=== PATIENT | male | born 1935 | race Caucasian/White ===

== ENCOUNTER → 2017-03-24 | Outpatient (CLI) | payer MEDICARE, BC ==
[~2017-03-24] VITALS: Ht 170.2 cm; Wt 77.1 kg
[~2017-03-24] MED LIST: ADALAT10 MG ORAL; ASPIR 8181 MG ORAL; DIOVAN320 MG ORAL; GABAPENTIN100 MG ORAL; PLAVIX75 MG ORAL; SIMVASTATIN40 MG ORAL; VITAMIN D1000 UNI1 ORAL
[2017-03-24 09:31] VITALS: BP 131/72
--- NOTE | 2017-03-24 13:36 | GI Initial Consult Note ---
History of Present Illness General Date patient seen: March 24, 2017 Time patient seen: 11:00 Referring physician: RICHELLE Reason for Consultation: ABNORMALITY ON PANCREATIC DUCT Present Illness HPI 82 year old male patient referred by Dr. Yang to evaluate abnormality of pancreatic duct as shown on recent CT scans, full report in chart. Pt has recent CVA, currently on ASA and Plavix. He presents today with generalized abdominal pain and c/o of GERD. States that his appetite has been good. Unknown history of colonoscopy. Home Meds Reported Medications Gabapentin* (GABAPENTIN*) 100 Mg Capsule, 100 MG ORAL THREE TIMES A DAY, CAP 03/24/17 Cholecalciferol (Vitamin D3)* (VITAMIN D*) 1,000 Unit Tablet, 2000 UNITS ORAL DAILY, #30 TAB 0 Refills 03/24/17 Valsartan (DIOVAN) 320 Mg Tablet, 320 MG ORAL DAILY, TAB 03/24/17 Simvastatin (ZOCOR) 40 Mg Tablet, 40 MG ORAL BEDTIME, TAB 03/24/17 Nifedipine (Nifedipine*) Unknown Strength Capsule, ORAL EVERY 6 HOURS, CAP 03/24/17 Clopidogrel Bisulfate* (PLAVIX*) 75 Mg Tablet, 75 MG ORAL DAILY, TAB 03/24/17 Aspirin* (ASPIR 81*) 81 Mg Tablet., 81 MG ORAL DAILY, TAB 03/24/17 Med list reviewed/reconciled: Yes Allergies: Coded Allergies: KETOROLAC (Verified Allergy, Mild, 03/24/17) HOT FLUSHES Patient History History Provided By: Patient, Medical Record PMH Narrative CVA 10/2016 Nerve Pain 01/2017 HTN cholesterol prostate CA GERD diverticulitis PSHx proctectomy angioplasty > 40 years ago Pertinent Family History: none Social History: Denies: alcohol use, drug use, other, smoking Review of Systems All Other Systems: negative except mentioned in HPI Physical Exam Vital Signs Date Time Temp Pulse Resp B/P Pulse Ox O2 Delivery O2 Flow Rate FiO2 03/24/17 09:31 97.8 62 16 131/72 99 Sp02 EP Interpretation: reviewed General Appearance: well appearing, no apparent distress, alert Head: normocephalic EENT: normal ENT inspection Neck: supple Respiratory: normal breath sounds, no respiratory distress Cardiovascular: normal peripheral pulses, normal rate Gastrointestinal: normal inspection, non tender, soft Rectal: deferred Genitourinary: no CVA tenderness Musculoskeletal: back normal Neurologic: normal inspection, alert, oriented x3, responsive Psychiatric: normal inspection, judgement/insight normal, memory normal Skin: normal inspection, normal color, no rash, warm/dry Lymphatic: normal inspection, no adenopathy GI: Plan Problems: (1) Abnormality of pancreatic duct (2) Diverticulitis (3) GERD (gastroesophageal reflux disease) (4) CVA (cerebral vascular accident) (5) HTN (hypertension) (6) Elevated cholesterol (7) Nerve pain (8) H/O prostatectomy (9) H/O angioplasty (10) Abdominal pain Plan ordered MRI, MRCP @ [facility] RTC after imaging studies Seen with Dr. Hart. Thank you for referring this patient. Staci Vieyra N.P. March 24, 2017 13:36
== END | disposition home or self-care (01) ==
LOC: PAN 08:58
DX: K57.92 Diverticulitis of intestine, part unspecified, without perforation or abscess without bleeding (principal); K21.9 Gastro-esophageal reflux disease without esophagitis; Z86.73 Personal history of transient ischemic attack (TIA), and cerebral infarction without residual deficits; I10 Essential (primary) hypertension; E78.00 Pure hypercholesterolemia, unspecified; M79.2 Neuralgia and neuritis, unspecified; Z90.79 Acquired absence of other genital organ(s); R10.9 Unspecified abdominal pain; Z85.46 Personal history of malignant neoplasm of prostate; Z88.8 Allergy status to other drugs, medicaments and biological substances; Z79.82 Long term (current) use of aspirin; Z79.02 Long term (current) use of antithrombotics/antiplatelets
CPT/HCPCS: 99201

== ENCOUNTER 2017-05-05 09:01 | Outpatient (CLI) | payer MEDICARE, BC ==
--- NOTE | 2017-05-05 18:16 | GI Progress Note ---
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 SNOMED: 851519486 (2) Elevated cholesterol ICD Codes: E78.00 - Pure hypercholesterolemia, unspecified SNOMED: 67525341 (3) Abdominal pain ICD Codes: R10.9 - Unspecified abdominal pain SNOMED: 91911877 (4) GERD (gastroesophageal reflux disease) ICD Codes: K21.9 - Gastro-esophageal reflux disease without esophagitis SNOMED: 943596707 (5) Diverticulitis ICD Codes: K57.92 - Diverticulitis of intestine, part unspecified, without perforation or abscess without bleeding SNOMED: 680544113 Status: stable Status Narrative MRCP reviewed with patient >> overall unremarkable recommended Align Prevacid + / - Ebs next visit RTC x 3 months Assessment/Plan ordered MRI, MRCP @ [facility] RTC after imaging studies Subjective Gastrointestinal/Abdominal: Reports: no symptoms Objective T 97.5 BP 133/69 P 66 95 RA General Appearance: no apparent distress, alert Cardiovascular: normal rate Respiratory/Chest: normal breath sounds, no respiratory distress Abdominal Exam: normal bowel sounds, non tender Extremities: normal range of motion Staci Vieyra N.P. May 05, 2017 18:16
== END 2017-05-05 09:30 | disposition home or self-care (01) ==
LOC: PAN 09:01
DX: K21.9 Gastro-esophageal reflux disease without esophagitis (principal); K57.92 Diverticulitis of intestine, part unspecified, without perforation or abscess without bleeding; R10.9 Unspecified abdominal pain; Q45.3 Other congenital malformations of pancreas and pancreatic duct; E78.00 Pure hypercholesterolemia, unspecified
CPT/HCPCS: 99211

== ENCOUNTER 2017-05-28 14:16 | Outpatient (CLI) | payer MEDICARE, BC ==
--- NOTE | 2017-05-28 14:46 | GI Progress Note ---
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 Hart. Assessment/Plan MRCP reviewed with patient >> overall unremarkable rx Cipro + Flagyl for diverticulitis Call clinic next thursday if abdominal pain persists Consider EUS next visit RTC x 2 months Subjective Subjective abdominal pain tender to touch Objective T 97.8 BP 128/68 P 62 98 RA General Appearance: no apparent distress, alert Respiratory/Chest: normal breath sounds, no respiratory distress Abdominal Exam: normal bowel sounds, non tender, soft Extremities: normal range of motion Staci Vieyra N.P. May 28, 2017 14:46
== END 2017-05-28 14:55 | disposition home or self-care (01) ==
LOC: PAN 14:16
DX: K21.9 Gastro-esophageal reflux disease without esophagitis (principal); K57.92 Diverticulitis of intestine, part unspecified, without perforation or abscess without bleeding; R10.9 Unspecified abdominal pain; Q45.3 Other congenital malformations of pancreas and pancreatic duct
CPT/HCPCS: 99211

== ENCOUNTER 2017-08-05 13:59 | Outpatient (CLI) | payer MEDICARE, BC ==
[2017-08-05 14:19] VITALS: BP 111/56
--- NOTE | 2017-08-05 14:48 | GI Progress Note ---
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 Hart. Assessment/Plan MRCP reviewed with patient >> overall unremarkable typically would recommend surgical intervention at this point, however, given history of CVA x2 in the past year and necessity to be on Plavix and ASA, defer at this time cont Cipro + Flagyl x10 days Call clinic next thursday if abdominal pain persists Consider EUS next visit RTC x 1 month Subjective Subjective abdominal pain Objective Last 24 Hour Vital Signs Date Time Temp Pulse Resp B/P (MAP) Pulse Ox O2 Delivery O2 Flow Rate FiO2 08/05/17 14:19 98.0 65 16 111/56 General Appearance: no apparent distress, alert, thin Cardiovascular: normal rate Respiratory/Chest: normal breath sounds, no respiratory distress Abdominal Exam: normal bowel sounds, non tender, soft Extremities: normal range of motion Staci Vieyra N.P. Aug 05, 2017 14:48
[2017-08-05] MEDS ORDERED: ALIGN4 M1 PO (15:05)
[2017-08-05] MEDS ORDERED: PREVACID30 MG ORAL (15:05)
[2017-08-05] MEDS ORDERED: ADALAT CC30 MG ORAL (15:05)
== END 2017-08-05 14:35 | disposition home or self-care (01) ==
LOC: PAN 13:59
DX: K21.9 Gastro-esophageal reflux disease without esophagitis (principal); I63.9 Cerebral infarction, unspecified; R10.9 Unspecified abdominal pain; Q45.3 Other congenital malformations of pancreas and pancreatic duct; K57.92 Diverticulitis of intestine, part unspecified, without perforation or abscess without bleeding
CPT/HCPCS: 99211

== ENCOUNTER 2017-09-15 09:10 | Outpatient (CLI) | payer MEDICARE, BC ==
[~2017-09-15 09:10] MED LIST changes: +ADALAT CC30 MG ORAL; +ALIGN4 M1 PO; +PREVACID30 MG ORAL
[2017-09-15 09:21] VITALS: BP 110/59
--- NOTE | 2017-09-15 10:26 | GI Progress Note ---
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 Hart. Assessment/Plan MRCP reviewed with patient >> overall unremarkable, PD dilation typically would recommend surgical intervention at this point, however, given history of CVA x2 in the past year and necessity to be on Plavix and ASA, defer at this time Tx for diverticulitis completed 1 month ago >> Cipro + Flagyl x10 days Pt to contact us next year to schedule EUS/RTC x 3 months Subjective Subjective abdominal pain improved Objective Last 24 Hour Vital Signs Date Time Temp Pulse Resp B/P (MAP) Pulse Ox O2 Delivery O2 Flow Rate FiO2 09/15/17 09:21 97.8 62 16 110/59 General Appearance: WD/WN, no apparent distress, alert Cardiovascular: normal rate Respiratory/Chest: normal breath sounds, no respiratory distress Abdominal Exam: normal bowel sounds, non tender, soft Extremities: normal range of motion, non-tender Staci Vieyra N.P. Sep 15, 2017 10:26
== END 2017-09-15 10:00 | disposition home or self-care (01) ==
LOC: PAN 09:10
DX: R10.9 Unspecified abdominal pain (principal); K21.9 Gastro-esophageal reflux disease without esophagitis; K57.92 Diverticulitis of intestine, part unspecified, without perforation or abscess without bleeding; Q45.3 Other congenital malformations of pancreas and pancreatic duct
CPT/HCPCS: 99211

== ENCOUNTER 2019-02-21 15:05 | Outpatient (CLI) | payer MEDICARE, BC ==
--- NOTE | 2019-02-21 15:31 | General Progress Note ---
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
[2019-02-22 07:15] VITALS: BP 102/55
== END 2019-02-21 17:05 | disposition home or self-care (01) ==
LOC: PAN 15:05
DX: K57.92 Diverticulitis of intestine, part unspecified, without perforation or abscess without bleeding (principal); I10 Essential (primary) hypertension; K21.9 Gastro-esophageal reflux disease without esophagitis; R10.9 Unspecified abdominal pain; Q45.3 Other congenital malformations of pancreas and pancreatic duct; Z90.79 Acquired absence of other genital organ(s); Z88.8 Allergy status to other drugs, medicaments and biological substances; Z86.73 Personal history of transient ischemic attack (TIA), and cerebral infarction without residual deficits
CPT/HCPCS: 99212

== ENCOUNTER → 2020-07-10 | Outpatient (CLI) | payer MEDICARE, BC, OTHER ==
--- NOTE | 2020-07-10 10:44 | General Progress Note ---
Assessment/Plan Assessment/Plan: Assessment/Plan Problem List: (1) HTN (hypertension) ICD Codes: I10 - Essential (primary) hypertension SNOMED: 32753430 (2) CVA (cerebral vascular accident) ICD Codes: I63.9 - Cerebral infarction, unspecified SNOMED: 814176914 (3) Diverticulitis ICD Codes: K57.92 - Diverticulitis of intestine, part unspecified, without perforation or abscess without bleeding SNOMED: 053180265 (4) GERD (gastroesophageal reflux disease) ICD Codes: K21.9 - Gastro-esophageal reflux disease without esophagitis SNOMED: 015920685 (5) Abdominal pain ICD Codes: R10.9 - Unspecified abdominal pain SNOMED: 97450881 (6) 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
== END | disposition home or self-care (01) ==
LOC: PAN 10:29
DX: K21.9 Gastro-esophageal reflux disease without esophagitis (principal); K57.92 Diverticulitis of intestine, part unspecified, without perforation or abscess without bleeding; I63.9 Cerebral infarction, unspecified; I10 Essential (primary) hypertension; R10.9 Unspecified abdominal pain; Q45.3 Other congenital malformations of pancreas and pancreatic duct; Z90.79 Acquired absence of other genital organ(s); Z88.8 Allergy status to other drugs, medicaments and biological substances

== ENCOUNTER 2020-09-11 09:40 | Outpatient (CLI) | payer MEDICARE, BC ==
[2020-09-11 09:59] VITALS: BP 127/53
[2020-09-11] MEDS ORDERED: BENICAR40 MG ORAL (10:14)
[2020-09-11] MEDS ORDERED: MIRALAX17 G2 ORAL (10:14)
[2020-09-11] MEDS ORDERED: VITAMIN C500 M1 ORAL (10:14)
[2020-09-11] MEDS ORDERED: COQ-10100 M1 PO (10:14)
[2020-09-11] MEDS ORDERED: MELATONIN5 M5 ORAL (10:14)
[2020-09-11] MEDS ORDERED: LIVALO2 MG PO (10:14)
[2020-09-11] MEDS ORDERED: MAGNESIUM500 MG PO (10:14)
[2020-09-11] MEDS ORDERED: ZINC50 M2 ORAL (10:14)
[2020-09-11] MEDS ORDERED: VASCEPA1 GM PO (10:14)
[2020-09-11] MEDS ORDERED: HYDROCHLOROTHIA25 MG ORAL (10:14)
--- NOTE | 2020-09-11 11:12 | General Progress Note ---
Subjective ROS Limited/Unobtainable: Yes Allergies: Coded Allergies: KETOROLAC (Verified Allergy, Mild, 03/24/17) HOT FLUSHES Objective Last 24 Hour Vital Signs Date Time Temp Pulse Resp B/P (MAP) Pulse Ox O2 Delivery O2 Flow Rate FiO2 09/11/20 09:59 98.0 67 127/53 16 General Appearance: alert EENT: normal ENT inspection Neck: supple Cardiovascular: normal rate Respiratory/Chest: decreased breath sounds Abdomen: normal bowel sounds, non tender, soft Extremities: non-tender Assessment/Plan Assessment/Plan: Assessment/Plan Assessment/Plan: Assessment/Plan Problem List: (1) HTN (hypertension) ICD Codes: I10 - Essential (primary) hypertension SNOMED: 65057389 (2) CVA (cerebral vascular accident) ICD Codes: I63.9 - Cerebral infarction, unspecified SNOMED: 026346942 (3) Diverticulitis ICD Codes: K57.92 - Diverticulitis of intestine, part unspecified, without perforation or abscess without bleeding SNOMED: 308960187 (4) GERD (gastroesophageal reflux disease) ICD Codes: K21.9 - Gastro-esophageal reflux disease without esophagitis SNOMED: 749541960 (5) Abdominal pain ICD Codes: R10.9 - Unspecified abdominal pain SNOMED: 40702154 (6) 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
== END 2020-09-11 11:40 | disposition home or self-care (01) ==
LOC: PAN 09:40
DX: K21.9 Gastro-esophageal reflux disease without esophagitis (principal); K57.92 Diverticulitis of intestine, part unspecified, without perforation or abscess without bleeding; I63.9 Cerebral infarction, unspecified; I10 Essential (primary) hypertension; R10.9 Unspecified abdominal pain; Q45.3 Other congenital malformations of pancreas and pancreatic duct; Z90.79 Acquired absence of other genital organ(s); D64.9 Anemia, unspecified
CPT/HCPCS: 99212

== ENCOUNTER 2020-10-04 13:18 | Outpatient (CLI) | payer MEDICARE, BC ==
[~2020-10-04 13:18] MED LIST changes: +BENICAR40 MG ORAL; +COQ-10100 M1 PO; +HYDROCHLOROTHIA25 MG ORAL; +LIVALO2 MG PO; +MAGNESIUM500 MG PO; +MELATONIN5 M5 ORAL; +MIRALAX17 G2 ORAL; +VASCEPA1 GM PO; +VITAMIN C500 M1 ORAL; +ZINC50 M2 ORAL
--- NOTE | 2020-10-10 16:21 | General Progress Note ---
Subjective ROS Limited/Unobtainable: Yes Allergies: Coded Allergies: KETOROLAC (Verified Allergy, Mild, 03/24/17) HOT FLUSHES Objective General Appearance: alert EENT: normal ENT inspection Neck: supple Cardiovascular: normal rate Respiratory/Chest: decreased breath sounds Abdomen: normal bowel sounds, non tender, soft Extremities: non-tender Assessment/Plan Assessment/Plan: SUMMARY OF FINDINGS: 1. Gastritis, status post biopsy. 2. Two colonic polyps removed, see above for details. 3. Internal hemorrhoids. 4. Significant left-sided diverticulosis. path reviewed fu H&H repeat colon in 5 years repeat stool ob consider capsule if needed Markus Hart MD Oct 10, 2020 16:21
== END 2020-10-04 15:18 | disposition home or self-care (01) ==
LOC: PAN 13:18
DX: K29.70 Gastritis, unspecified, without bleeding (principal); K63.5 Polyp of colon; K64.8 Other hemorrhoids; K57.90 Diverticulosis of intestine, part unspecified, without perforation or abscess without bleeding; Z88.8 Allergy status to other drugs, medicaments and biological substances
CPT/HCPCS: 99212